=== PATIENT | female | born 1955 | race African-American/Black ===

== ENCOUNTER 2016-12-19 10:32 | Emergency (ER) | payer OTHER ==
[2016-12-19 10:48] VITALS: BP 158/87; PULSE 75; TEMP 97.9; BMI 31.8
--- NOTE | 2016-12-19 12:17 | PDOC ---
History of Present Illness - General Chief Complaint: Eye Problem Stated Complaint: SWOLLEN EYES Time Seen by Provider: 12/19/16 11:41 History Source: Patient Exam Limitations: No Limitations - History of Present Illness Initial Comments: 12/19/16 12:11 CC red eye x 1 day with discharge; very itchy Timing/Duration: 24 hours Severity: mild Associated Symptoms: denies: chest pain, fever/chills, rash Past History - Past Medical History Allergies/Adverse Reactions: Allergies Allergy/AdvReac Type Severity Reaction Status Date / Time aspirin Allergy Severe Hives Verified 12/19/16 10:44 hydrocodone bitartrate Allergy Rash Verified 12/19/16 10:44 [From Vicodin] Home Medications: Ambulatory Orders Olmesartan/Hydrochlorothiazide [Benicar Hct 20-12.5MG Tab -] mg PO DAILY Acetaminophen [Tylenol .Regular Strength -] 650 mg PO Q4H PRN #0 tablet Alprazolam [Xanax] 0.5 mg PO PRN PRN #0 tablet 07/16/12 Dexlansoprazole [Dexilant -] 60 mg PO DAILY #0 cap.drHeribertomp 07/16/12 Enoxaparin [Lovenox -] 40 mg SQ DAILY #0 disp.syrin 07/16/12 Ketorolac Injection [Toradol Injection -] 30 mg IM Q6H PRN #0 vial 07/16/12 Olmesartan/Hydrochlorothiazide [Benicar Hct 20-12.5 mg Tablet] 1 each PO DAILY # 0 tablet 07/16/12 Sennosides [Senna -] 1 tab PO HS #0 tablet 07/16/12 Albuterol Sulfate Inhaler - [Ventolin HFA Inhaler -] 2 inh PO Q4H PRN #1 inh 06/02 Azithromycin [Zithromax Z-THIERRY (5 DAYS) -] 250 mg PO ASDIR #6 tablet 03/26/14 Cetirizine HCl [Zyrtec] 10 mg PO DAILY #10 capsule 03/26/14 Anemia: No Asthma: No Cancer: Yes (CA UTERUS, PAH 1995, NO CHEMO, RADIATION) Cardiac Disorders: No CVA: No COPD: No CHF: No Dementia: No Diabetes: No GI Disorders: Yes (GERD) Disorders: No HTN: Yes Hypercholesterolemia: No Liver Disease: No Seizures: No Thyroid Disease: No - Surgical History Abdominal Surgery: No Appendectomy: No Cardiac Surgery: No Cholecystectomy: No Lung Surgery: No Neurologic Surgery: No Orthopedic Surgery: Yes (RIGHT ARTHROSCOPY) - Psycho/Social/Smoking Cessation Hx Anxiety: Yes Suicidal Ideation: No Smoking History: Former smoker Have you smoked in the past 12 months: No Information on smoking cessation initiated: No Hx Alcohol Use: No Drug/Substance Use Hx: No Substance Use Type: None Hx Substance Use Treatment: No Review of Systems - Review of Systems Constitutional: No: Chills, Fever, Malaise HEENTM: Yes: Tearing, Nose Congestion. No: Eye Pain, Recent change in vision, Double Vision, Cataracts, Ear Pain, Ocular Prothesis, Difficulty Swallowing Respiratory: Yes: Symptoms reported, Cough Cardiac (ROS): No: Symptoms Reported ABD/GI: No: Symptoms Reported *Physical Exam - Vital Signs Last Vital Signs Temp Pulse Resp BP Pulse Ox 97.9 F 75 17 158/87 97 12/19/16 10:44 12/19/16 10:44 12/19/16 10:44 12/19/16 10:44 12/19/16 10:44 - Physical Exam General Appearance: Yes: Appropriately Dressed. No: Apparent Distress HEENT: positive: Nasal Congestion, Rhinorrhea, Other (eye drainage bilat; right > left). negative: TMs Normal, Pharynx Normal, Muffled/Hoarse voice, TM Bulging , TM Dull Neck: negative: Rigid, Supple, Stridor Respiratory/Chest: positive: Lungs Clear. negative: Chest Tender Cardiovascular: positive: Regular Rhythm, Regular Rate. negative: Murmur Medical Decision Making - Medical Decision Making 12/19/16 12:15 bilateral conjunctivitis *DC/Admit/Observation/Transfer Diagnosis at time of Disposition: Conjunctivitis Qualifiers: Conjunctivitis type: acute Acute conjunctivitis type: bacterial Laterality: bilateral Qualified Code(s): H10.33 - Unspecified acute conjunctivitis, bilateral - Discharge Dispostion Disposition: HOME Condition at time of disposition: Stable Admit: No - Referrals Referrals: Eduardo Myles MD [Primary Care Provider] - Kentrell Lundy MD [Staff Physician] - - Patient Instructions Additional Instructions: please see eye md this week for reevaluation if no better 2 days - Post Discharge Activity Work/School Note: Back to Work
== END 2016-12-19 12:28 | disposition home or self-care (01) ==
LOC: JERFT 10:32
DX: H10.33 Unspecified acute conjunctivitis, bilateral (principal); I10 Essential (primary) hypertension
CPT/HCPCS: 99281-25

== ENCOUNTER 2017-10-06 21:25 | Emergency (ER) | payer OTHER ==
[2017-10-06 21:32] VITALS: BP 150/73; PULSE 85; TEMP 97.9
--- NOTE | 2017-10-06 21:34 | PDOC ---
Rapid Medical Evaluation Chief Complaint: Injury Time Seen by Provider: 10/06/17 21:30 Medical Evaluation: Allergies Allergy/AdvReac Type Severity Reaction Status Date / Time aspirin Allergy Severe Hives Verified 10/06/17 21:29 hydrocodone bitartrate Allergy Rash Verified 10/06/17 21:29 [From Vicodin] 10/06/17 21:30 I have performed a brief in-person evaluation of this patient. The patient presents with a chief complaint of: Left arm pain Pertinent physical exam findings: Decrease ROM to Left arm I have ordered the following: X-ray of left shoulder. The patient will proceed to the ED for further evaluation
[2017-10-06 23:29] LABS: INR 1.08 (0.82-1.09); PROTHROMBIN TIME (PATIENT) 12.2 SEC (9.98-11.88)
[2017-10-06 23:30] LABS: BASOPHIL 0.8 % (0-2.0); EOSINOPHIL 2.6 % (0-4.5); MCH 27.7 pg (25.7-33.7); MCHC 33.8 g/dl (32.0-36.0); NEUTROPHILS 57.7 % (42.8-82.8); PLATELET COUNT 323 K/MM3 (134-434); RDW 14.2 % (11.6-15.6); WHITE BLOOD COUNT 7.1 K/mm3 (4.0-10.0)
[2017-10-06 23:47] LABS: ALBUMIN 4.1 g/dl (3.4-5.0); ANION GAP 11 (8-16); BILIRUBIN,TOTAL 0.4 mg/dL (0.2-1.0); CALCIUM 9.4 mg/dL (8.5-10.1); CO2 25 mmol/L (21-32); CREATININE 0.6 mg/dL (0.55-1.02); GLUCOSE,RANDOM 101 mg/dL (74-106); MAGNESIUM 2.1 mg/dL (1.8-2.4); SGOT/AST 13 U/L (15-37); SGPT/ALT 21 U/L (12-78); TOT PROT 7.8 g/dl (6.4-8.2)
[2017-10-06 23:50] LABS: ALK PHOS 114 U/L (45-117); CPK 115 IU/L (26-192); TROPONIN I < 0.02 ng/ml (0.00-0.05)
[2017-10-07] MEDS ORDERED: morphine CARPU-JECT 2 MG/1 ML DISP.SYRIN IVPUSH ONE (00:33)
--- NOTE | 2017-10-07 00:36 | PDOC ---
History of Present Illness - General History Source: Patient Exam Limitations: No Limitations - History of Present Illness Initial Comments: 10/07/17 04:14 The patient is a 61-year-old female with a significant past medical history of HTN, uterine CA, and s/p right arthroscopy, and presents to the emergency department with left shoulder pain s/p injury 2 days ago. Her shoulder pain started after pulling her air conditioners out. She states the pain radiates to her upper arm, neck, and left anterior chest region. She reports that she went to [facility] for an MRI and states they told her there was a cyst in the shoulder. However, she states her pain becoming worse. The patient denies shortness of breath, headache and dizziness. The patient denies fever, chills, nausea, vomit, diarrhea and constipation. The patient denies dysuria, frequency, urgency and hematuria. Allergies: aspirin, hydrocodone bitartrate Past Surgical History: right arthroscopy Social History: No toxic habits reported PCP: Dr. Eduardo Myles <Meagan Del Rio - Last Filed: 10/07/17 04:14> <Sunshine Edmond - Last Filed: 10/08/17 01:12> - General Chief Complaint: Injury Stated Complaint: PAIN Time Seen by Provider: 10/06/17 21:54 Past History <Meagan Del Rio - Last Filed: 10/07/17 04:14> - Past Medical History Anemia: No Asthma: No Cancer: Yes (CA UTERUS, PAH 1995, NO CHEMO, RADIATION) Cardiac Disorders: No CVA: No COPD: No CHF: No Dementia: No Diabetes: No GI Disorders: Yes (GERD) Disorders: No HTN: Yes Hypercholesterolemia: No Liver Disease: No Seizures: No Thyroid Disease: No - Surgical History Abdominal Surgery: No Appendectomy: No Cardiac Surgery: No Cholecystectomy: No Lung Surgery: No Neurologic Surgery: No Orthopedic Surgery: Yes (RIGHT ARTHROSCOPY) - Suicide/Smoking/Psychosocial Hx Smoking History: Never smoked Have you smoked in the past 12 months: No Information on smoking cessation initiated: No Hx Alcohol Use: No Drug/Substance Use Hx: No Substance Use Type: None Hx Substance Use Treatment: No <Sunshine Edmond - Last Filed: 10/08/17 01:12> - Past Medical History Allergies/Adverse Reactions: Allergies Allergy/AdvReac Type Severity Reaction Status Date / Time aspirin Allergy Severe Hives Verified 10/06/17 21:29 hydrocodone bitartrate Allergy Rash Verified 10/06/17 21:29 [From Vicodin] Home Medications: Ambulatory Orders Dexlansoprazole [Dexilant] 60 mg PO DAILY 10/07/17 Methocarbamol [Robaxin -] 500 mg PO TID #30 tablet 10/07/17 Olmesartan/Hydrochlorothiazide [Olmesartan-Hctz 40-12.5 mg Tab] 12.5 mg PO DAILY 10/07/17 Tramadol HCl 50 mg PO PRN PRN 10/07/17 Review of Systems - Review of Systems Able to Perform ROS?: Yes Comments:: 10/07/17 04:14 GENERAL/CONSTITUTIONAL: No fever or chills. No weakness. HEAD, EYES, EARS, NOSE AND THROAT: No change in vision. No ear pain or discharge. No sore throat. CARDIOVASCULAR: No chest pain or shortness of breath. RESPIRATORY: No cough, wheezing, or hemoptysis. GASTROINTESTINAL: No nausea, vomiting, diarrhea or constipation. GENITOURINARY: No dysuria, frequency, or change in urination. MUSCULOSKELETAL: (+) Left shoulder pain. No joint or muscle swelling. No back pain. SKIN: No rash NEUROLOGIC: No headache, vertigo, loss of consciousness, or change in strength/ sensation. ENDOCRINE: No increased thirst. No abnormal weight change. HEMATOLOGIC/LYMPHATIC: No anemia, easy bleeding, or history of blood clots. ALLERGIC/IMMUNOLOGIC: No hives or skin allergy. <Vanesa Del Rioa - Last Filed: 10/07/17 04:14> *Physical Exam - Vital Signs Last Vital Signs Temp Pulse Resp BP Pulse Ox 97.9 F 85 18 150/73 97 10/06/17 21:30 10/06/17 21:30 10/06/17 21:30 10/06/17 21:30 10/06/17 21:30 - Physical Exam Comments: 10/07/17 04:14 GENERAL: Awake, alert, and fully oriented, in no acute distress HEAD: No signs of trauma EYES: PERRLA, EOMI, sclera anicteric, conjunctiva clear ENT: Auricles normal inspection, hearing grossly normal, nares patent, oropharynx clear without exudates. Moist mucosa NECK: Normal ROM, supple, no lymphadenopathy, JVD, or masses LUNGS: Breath sounds equal, clear to auscultation bilaterally. No wheezes, and no crackles HEART: Regular rate and rhythm, normal S1 and S2, no murmurs, rubs or gallops ABDOMEN: Soft, nontender, normoactive bowel sounds. No guarding, no rebound. No masses EXTREMITIES: (+) Left shoulder muscle spasm, no edema. No clubbing or cyanosis. No cords, erythema, or calf tenderness. NEUROLOGICAL: Cranial nerves II through XII grossly intact. Normal speech, normal gait SKIN: Warm, Dry, normal turgor, no rashes or lesions noted. <Meagan Del Rio - Last Filed: 10/07/17 04:14> - Vital Signs Last Vital Signs Temp Pulse Resp BP Pulse Ox 97.9 F 85 18 150/73 97 10/06/17 21:30 10/06/17 21:30 10/06/17 21:30 10/06/17 21:30 10/06/17 21:30 <Sunshine Edmond - Last Filed: 10/08/17 01:12> ED Treatment Course - LABORATORY CBC & Chemistry Diagram: 10/06/17 23:07 10/06/17 23:07 - ADDITIONAL ORDERS Additional order review: Laboratory Results 10/06/17 10/06/17 23:07 23:07 PT with INR 12.20 H INR 1.08 Sodium 139 Potassium 3.4 L Chloride 103 Carbon Dioxide 25 Anion Gap 11 BUN 8 Creatinine 0.6 Creat Clearance w eGFR > 60 Random Glucose 101 Calcium 9.4 Magnesium 2.1 Total Bilirubin 0.4 D AST 13 L D ALT 21 D Alkaline Phosphatase 114 D Creatine Kinase 115 Troponin I < 0.02 Total Protein 7.8 D Albumin 4.1 D 10/06/17 23:07 RBC 4.93 D MCV 82.0 MCHC 33.8 RDW 14.2 MPV 9.0 Neutrophils % 57.7 Lymphocytes % 32.9 D Monocytes % 6.0 Eosinophils % 2.6 Basophils % 0.8 - Medications Given in the ED: ED Medications Discontinued Medications Generic Name Dose Route Start Last Admin Trade Name Freq PRN Reason Stop Dose Admin Acetaminophen 1,000 mg 10/07/17 03:10 10/07/17 03:21 Ofirmev Injection - IVPB 10/07/17 03:11 1,000 mg ONCE ONE Administration Methocarbamol 500 mg 10/07/17 03:10 10/07/17 03:21 Robaxin - PO 10/07/17 03:11 500 mg ONCE ONE Administration Morphine Sulfate 2 mg 10/07/17 00:33 10/07/17 00:46 Morphine Injection - IVPUSH 10/07/17 00:34 2 mg ONCE ONE Administration <Meagan Del Rio - Last Filed: 10/07/17 04:14> - LABORATORY CBC & Chemistry Diagram: 10/06/17 23:07 10/06/17 23:07 - ADDITIONAL ORDERS Additional order review: Laboratory Results 10/06/17 10/06/17 23:07 23:07 PT with INR 12.20 H INR 1.08 Sodium 139 Potassium 3.4 L Chloride 103 Carbon Dioxide 25 Anion Gap 11 BUN 8 Creatinine 0.6 Creat Clearance w eGFR > 60 Random Glucose 101 Calcium 9.4 Magnesium 2.1 Total Bilirubin 0.4 D AST 13 L D ALT 21 D Alkaline Phosphatase 114 D Creatine Kinase 115 Troponin I < 0.02 Total Protein 7.8 D Albumin 4.1 D 10/06/17 23:07 RBC 4.93 D MCV 82.0 MCHC 33.8 RDW 14.2 MPV 9.0 Neutrophils % 57.7 Lymphocytes % 32.9 D Monocytes % 6.0 Eosinophils % 2.6 Basophils % 0.8 <Sunshine Edmond - Last Filed: 10/08/17 01:12> Medical Decision Making - Medical Decision Making 10/08/17 01:10 61 yo female with left shoulder pain. Some radiation to chest. Labs normal. Exam pt has muscle spasm and sprain. She was pulling AC units out of the wall of her home and carrying them about. Pt likely injured muscles. EKG NSR. <Sunshine Edmond - Last Filed: 10/08/17 01:12> *DC/Admit/Observation/Transfer - Attestations Scribe Attestion: 10/07/17 04:15 Documentation prepared by Meagan Del Rio, acting as medical officer for Sunshine Edmond MD/DO. <Meagan Del Rio - Last Filed: 10/07/17 04:14> - Discharge Dispostion Admit: No <Sunshine Edmond - Last Filed: 10/08/17 01:12> Diagnosis at time of Disposition: Muscle spasm - Discharge Dispostion Disposition: HOME Condition at time of disposition: Stable - Prescriptions Prescriptions: Methocarbamol [Robaxin -] 500 mg PO TID #30 tablet - Referrals Referrals: Eduardo Myles MD [Primary Care Provider] - - Patient Instructions Printed Discharge Instructions: DI for Shoulder Sprain - Post Discharge Activity
[2017-10-07] MEDS ORDERED: morphine SULFATE 4 MG/ML VIAL ONE (00:37)
[2017-10-07] MEDS ORDERED: METHOCARBAMOL 500 MG TABLET PO ONE (03:10)
[2017-10-07] MEDS ORDERED: ACETAMINOPHEN 1000 MG/100 ML VIAL (NON FORMULARY) IVPB ONE (03:10)
[2017-10-07] MEDS ORDERED: METHOCARBAMOL 500 MG TABLET ONE (03:15)
[2017-10-07] MEDS ORDERED: ACETAMINOPHEN INJECTION 100 ML IVPB ONE (03:16)
--- NOTE | 2017-10-09 11:38 | EKG ---
Test Reason : Blood Pressure : / mmHG Vent. Rate : 066 BPM Atrial Rate : 066 BPM P-R Int : 160 ms QRS Dur : 084 ms QT Int : 438 ms P-R-T Axes : 038 030 063 degrees QTc Int : 459 ms NORMAL SINUS RHYTHM NORMAL ECG WHEN COMPARED WITH ECG OF 13-JUL-2008 12:56, NO SIGNIFICANT CHANGE WAS FOUND Confirmed by PRABHAKAR CALVO MD ([id number]) on 10/09/2017 11:37:57 AM Referred By: Confirmed By:PRABHAKAR CALVO MD
== END 2017-10-07 04:10 | disposition home or self-care (01) ==
LOC: JERFT 21:25 → JER 21:25
PROC: 3E033NZ Introduction of Analgesics, Hypnotics, Sedatives into Peripheral Vein, Percutaneous Approach (ICD-10-PCS; principal; 2017-10-06)
PROC: 3E033NZ Introduction of Analgesics, Hypnotics, Sedatives into Peripheral Vein, Percutaneous Approach (ICD-10-PCS; 2017-10-06)
DX: M62.838 Other muscle spasm (principal)
CPT/HCPCS: 36415; 71020-TC; 73030-TC-LT; 80053; 82550; 83735; 84484; 85025; 85610; 93005; 93010; 96374; 96375; 99282-25

== ENCOUNTER 2018-11-06 13:08 | Emergency (ER) | payer OTHER ==
[2018-11-06 13:20] VITALS: TEMP 97.4; BMI 30.4
--- NOTE | 2018-11-06 13:58 | PDOC ---
History of Present Illness - General Chief Complaint: Blood Pressure Problem Stated Complaint: SENT BY PCP HIGH BLOOD PRESSURE Time Seen by Provider: 11/06/18 13:46 History Source: Patient Exam Limitations: No Limitations - History of Present Illness Initial Comments: 11/06/18 13:53 Patient is a 62F with history of HTN, HLD, GERD and knee replacement here today complaining of high blood pressure reading. Patient states that her blood pressure was 175/110 at home, and when she called to set an appointment for this , she was told to go to the ED. She denies headache, vision changes, chest pain , shortness of breath and abdominal pain. Patient states that she feels fine, she's just had high blood pressure readings. Currently takes olmesartan and HCTZ. Denies fevers, chills, nausea, vomiting. Past History - Past Medical History Allergies/Adverse Reactions: Allergies Allergy/AdvReac Type Severity Reaction Status Date / Time aspirin Allergy Severe Hives Verified 11/06/18 13:16 hydrocodone bitartrate Allergy Rash Verified 11/06/18 13:16 [From Vicodin] Home Medications: Ambulatory Orders Dexlansoprazole [Dexilant] 60 mg PO DAILY 10/07/17 Methocarbamol [Robaxin -] 500 mg PO TID #30 tablet 10/07/17 Colestipol HCl 2 gm PO BID 05/29/18 Olmesartan Medoxomil 20 mg PO DAILY 05/29/18 Blood Pressure Test Kit-Large [Blood Pressure Monitor] 1 each PRN #1 kit 10/07 Hydrochlorothiazide [Hctz -] 12.5 mg PO DAILY #14 cap 05/30/18 Miscellaneous Medical Supply [Outpatient Order] 1 each ASDIR #1 misc Anemia: No Asthma: No Cancer: Yes (Uterine CA) Cardiac Disorders: No CVA: No COPD: No CHF: No Dementia: No Diabetes: No GI Disorders: Yes (GERD) Disorders: No HTN: Yes Hypercholesterolemia: Yes Liver Disease: No Seizures: No Thyroid Disease: No - Surgical History Abdominal Surgery: No Appendectomy: No Cardiac Surgery: No Cholecystectomy: No Lung Surgery: No Neurologic Surgery: No Orthopedic Surgery: Yes (RIGHT knee ARTHROSCOPY x2) - Immunization History Immunization Up to Date: Yes - Suicide/Smoking/Psychosocial Hx Smoking History: Never smoked Have you smoked in the past 12 months: No If you are a former smoker, when did you quit?: 2006 Hx Alcohol Use: No Drug/Substance Use Hx: No Substance Use Type: None Hx Substance Use Treatment: No Review of Systems - Review of Systems Comments:: 11/06/18 13:56 GENERAL/CONSTITUTIONAL: No fever or chills. No weakness. HEAD, EYES, EARS, NOSE AND THROAT: No change in vision. No sore throat. CARDIOVASCULAR: No chest pain or shortness of breath RESPIRATORY: No cough, wheezing, or hemoptysis. GASTROINTESTINAL: No nausea, vomiting, diarrhea or constipation. GENITOURINARY: No dysuria, frequency, or change in urination. MUSCULOSKELETAL: +b/l knee pain, chronic. No neck or back pain. SKIN: No rash NEUROLOGIC: No headache, vertigo, loss of consciousness, or change in strength/ sensation. HEMATOLOGIC/LYMPHATIC: No anemia, easy bleeding, or history of blood clots. *Physical Exam - Vital Signs Last Vital Signs Temp Pulse Resp BP Pulse Ox 97.4 F L 71 18 176/88 H 99 11/06/18 13:16 11/06/18 13:16 11/06/18 13:16 11/06/18 13:16 11/06/18 13:16 - Physical Exam Comments: 11/06/18 13:58 GENERAL: Awake, alert, and fully oriented, in no acute distress HEAD: No signs of trauma, normocephalic, atraumatic EYES: PERRLA, EOMI, sclera anicteric, conjunctiva clear NECK: Normal ROM, supple, no lymphadenopathy, JVD, or masses LUNGS: No distress, speaks full sentences, clear to auscultation bilaterally HEART: Regular rate and rhythm, normal S1 and S2, no murmurs, rubs or gallops, peripheral pulses normal and equal bilaterally. ABDOMEN: Soft, nontender, normoactive bowel sounds. No guarding, no rebound. No masses EXTREMITIES: Normal inspection, Normal range of motion, no edema. No clubbing or cyanosis. NEUROLOGICAL: Cranial nerves II through XII grossly intact. Normal speech, normal gait, no focal sensorimotor deficits SKIN: Warm, Dry, normal turgor, no rashes or lesions noted. Moderate Sedation - Procedure Monitoring Vital Signs: Procedure Monitoring Vital Signs Temperature 97.4 F L 11/06/18 13:16 Pulse Rate 71 11/06/18 13:16 Respiratory Rate 18 11/06/18 13:16 Blood Pressure 176/88 H 11/06/18 13:16 O2 Sat by Pulse Oximetry (%) 99 11/06/18 13:16 Medical Decision Making - Medical Decision Making 11/06/18 14:00 Patient is a 62F with history of htn, hld, gerd here today complaining of hypertension at home. Assymptomatic. BP here stable. Per ACEP guidelines, will not work up patient or attempt to start new medication. Dr Fuentes called at . Patient asking to go home, states that she will follow up in week. Dr Fuentes agrees with plan. Discharged home with return precautions. *DC/Admit/Observation/Transfer Diagnosis at time of Disposition: HTN (hypertension) - Discharge Dispostion Disposition: HOME Condition at time of disposition: Good Decision to Admit order: No - Referrals Referrals: Nathalie uFentes DO [Primary Care Provider] - - Patient Instructions Printed Discharge Instructions: DI for High Blood Pressure, How to Monitor Your Blood Pressure at Home Additional Instructions: Please follow up with your primary care doctor in the next week. Please return to the ED immediately if you have chest pain, shortness of breath or severe headache. - Post Discharge Activity
--- NOTE | 2018-11-06 13:59 | PDOC ---
Attending Attestation - Resident Resident Name: Alex Vuong - ED Attending Attestation I have performed the following: I have examined & evaluated the patient, The case was reviewed & discussed with the resident, I agree w/resident's findings & plan, Exceptions are as noted - Physicial Exam PE: 11/06/18 14:09 GENERAL: The patient is awake, alert, and fully oriented, Nontoxic - in no acute distress. HEAD: Normocephalic, atraumatic. EYES: extraocular movements intact, sclera anicteric, conjunctiva clear. ENT: Normal voice, Moist mucous membranes. NECK: Normal range of motion, supple LUNGS: Breath sounds equal, clear to auscultation bilaterally. No wheezes, no rhonchi, no rales. HEART: Regular rate and rhythm, normal S1 and S2 without murmur, rub or gallop. ABDOMEN: Soft, nontender, No guarding, no rebound. No CVA tenderness EXTREMITIES: Normal range of motion, NEUROLOGICAL: No facial assymetry, Normal speech, PSYCH: Normal mood, normal affect. SKIN: Warm, Dry, normal turgor, - Medical Decision Making 11/06/18 13:59 62y F hx of htn, hl, gerd presents for elevated bp. sent by PMD for hypertension. pt had a mild headache earlier today and lasted for ~1 hr resolved with tylenol. currently asymtomatic. denies any cp, sob, ligheadedness, vision changes, focal numbness/tingling/ weakness pt notes she is complaint with her bp meds. repeat bp at 138/88 will dc with pmd fu return precautions were discused A portion of this note was documented by scribe services under my direction. I have reviewed the details of the note, within reason, and agree with the documentation with the following case summary and management plan written by me
[2018-11-06 14:13] VITALS: BP 138/85; PULSE 66
== END 2018-11-06 14:13 | disposition home or self-care (01) ==
LOC: JER 13:08
DX: I10 Essential (primary) hypertension (principal); E78.5 Hyperlipidemia, unspecified; K21.9 Gastro-esophageal reflux disease without esophagitis
CPT/HCPCS: 99282-25

== ENCOUNTER 2019-02-12 22:07 | Emergency (ER) | payer OTHER ==
[2019-02-12 22:59] VITALS: BP 138/76; PULSE 77; TEMP 98.1; BMI 31.6
== END 2019-02-12 23:06 | disposition left against medical advice (07) ==
LOC: JER 22:07
DX: Z53.21 Procedure and treatment not carried out due to patient leaving prior to being seen by health care provider (principal)
CPT/HCPCS: 99281-25

== ENCOUNTER 2019-10-02 06:48 | Emergency (ER) | payer OTHER ==
[2019-10-02 07:19] VITALS: BP 133/83; PULSE 64; TEMP 98.3; BMI 30.2
[2019-10-02] MEDS ORDERED: DEXAMETHASONE LIQUID 0.5 MG/5 ML PO ONE (07:34)
[2019-10-02] MEDS ORDERED: ACETAMINOPHEN 325 MG TABLET (FP) PO ONE (07:34)
[2019-10-02] MEDS ORDERED: ACETAMINOPHEN 325 MG TABLET (FP) ONE (07:39)
[2019-10-02] MEDS ORDERED: DEXAMETHASONE SOD PHOSPHATE 10 MG/1 ML VIAL ONE (07:40)
--- NOTE | 2019-10-02 07:45 | PDOC ---
History of Present Illness - General Chief Complaint: Ear Problem Stated Complaint: BILATERAL EAR AND THROAT PAIN Time Seen by Provider: 10/02/19 07:21 History Source: Patient Exam Limitations: No Limitations Past History - Travel Traveled outside of the country in the last 30 days: No Close contact w/someone who was outside of country & ill: No - Past Medical History Allergies/Adverse Reactions: Allergies Allergy/AdvReac Type Severity Reaction Status Date / Time aspirin Allergy Severe Hives Verified 10/02/19 07:12 hydrocodone bitartrate Allergy Rash Verified 10/02/19 07:12 [From Vicodin] Home Medications: Ambulatory Orders Dexlansoprazole [Dexilant] 60 mg PO DAILY 10/07/17 Colestipol HCl 2 gm PO BID 05/29/18 Olmesartan Medoxomil 40 mg PO DAILY 05/29/18 Hydrochlorothiazide [Hctz -] 12.5 mg PO DAILY #14 cap 05/30/18 Azithromycin [Zithromax 250mg Tablets -] 250 mg PO UTDICT #6 tab 10/02/19 Chlorpheniramine/Dextromethorp [Coricidin Hbp Cough & Cold Tab] 1 each PO Q8H # 30 tablet 10/02/19 Fluticasone Prop 0.05% Nasal [Flonase -] 1 - 2 spray NS DAILY #1 spray.pump Anemia: No Asthma: No Cancer: Yes (Uterine CA) Cardiac Disorders: No CVA: No COPD: No CHF: No Dementia: No Diabetes: No GI Disorders: Yes (GERD) Disorders: No HTN: Yes Hypercholesterolemia: Yes Liver Disease: No Seizures: No Thyroid Disease: No - Surgical History Abdominal Surgery: No Appendectomy: No Cardiac Surgery: No Cholecystectomy: No Lung Surgery: No Neurologic Surgery: No Orthopedic Surgery: Yes (RIGHT knee ARTHROSCOPY x2) - Immunization History Immunization Up to Date: Yes - Psycho Social/Smoking Cessation Hx Smoking History: Never smoked Have you smoked in the past 12 months: No If you are a former smoker, when did you quit?: 2005 Information on smoking cessation initiated: No Hx Alcohol Use: No Drug/Substance Use Hx: No Substance Use Type: None Hx Substance Use Treatment: No Review of Systems - Review of Systems Able to Perform ROS?: Yes Comments:: 10/02/19 07:47 CONSTITUTIONAL: Present: fever Absent: chills, diaphoresis, generalized weakness, malaise, loss of appetite HEENT: Present: rhinorrhea, ear pain, sore throat, nasal congestion Absent:throat swelling, difficulty swallowing, mouth swelling, eye pain, visual Changes CARDIOVASCULAR: Absent: chest pain, loss of consciousness, palpitations, irregular heart rate, peripheral edema RESPIRATORY: Present: productive cough Absent: cough, shortness of breath, dyspnea with exertion, orthopnea, wheezing, stridor, hemoptysis GASTROINTESTINAL: Absent: abdominal pain, abdominal distension, nausea, vomiting, diarrhea, constipation, melena, hematochezia GENITOURINARY: Absent: dysuria, frequency, urgency, hesitancy, hematuria, flank pain, genital pain MUSCULOSKELETAL: Absent: myalgia, arthralgia, joint swelling SKIN: Absent: rash, itching, pallor NEUROLOGIC: Absent: headache, focal weakness or paresthesias, dizziness, unsteady gait, seizure, mental status changes, bladder or bowel incontinence PSYCHIATRIC: Absent: anxiety, depression, suicidal or homicidal ideation, hallucinations. Is the patient limited Danish proficient: No *Physical Exam - Vital Signs Last Vital Signs Temp Pulse Resp BP Pulse Ox 98.3 F 64 18 133/83 100 10/02/19 07:10 10/02/19 07:10 10/02/19 07:10 10/02/19 07:10 10/02/19 07:10 - Physical Exam Comments: 10/02/19 07:48 GENERAL: The patient is awake, alert, and fully oriented, in no acute distress. HEAD: Normal with no signs of trauma. EYES: Pupils equal, round and reactive to light, extraocular movements intact, sclera anicteric, conjunctiva clear. HEENT: (+) nasal congestion and rhinorrhea. No sinus Tenderness. Mucous membranes are moist. (+) tonsillar erythema. No exudate or edema. Uvula is midline.TM's are dull b/l. No TM bulging, or erythema. NECK: Neck is supple. (+) cervical adenopathy. No meningismus. No stridor. LUNGS: CTAB, (-) wheezing/rales/rhonchi. Good aeration to the bases. EXTREMITIES: Normal range of motion, no edema. NEUROLOGICAL: Normal speech, normal gait. PSYCH: Normal mood, normal affect. SKIN: Warm, Dry, normal turgor, no rashes or lesions noted. Medical Decision Making - Medical Decision Making 10/02/19 07:48 The patient is a 63-year-old female past medical history of hypertension, GERD, HLD, presents to the ER with 7 days of sore throat, bilateral earache and congestion. She states that she had a fever on Monday, but has not had one since. She also notes that she has developed a productive cough with yellow sputum. She states that she has been trying home remedies such as salt water gargles with little relief of her symptoms. She took 1 dose of an antibiotic last night that was left over from her daughter's previous treatment. Denies chills, chest pain, difficulty breathing, nausea, vomiting and diarrhea. A/P: URI/pharyngitis On exam patient with erythema to the posterior pharynx, positive cervical adenopathy. Lungs CTAB TMs are dull bilaterally without evidence of acute otitis media Rapid strep obtained; however, likely viral Decadron and Tylenol given for her symptoms Reevaluate 10/02/19 09:25 Rapid strep negative Given length of symptoms; will treat with a z-pack Last EKG reviewed (2018): Normal QTc Recommend other supportive therpay and PCP follow up DC home I discussed the physical exam findings, ancillary test results and final diagnoses with the patient. I answered all of the patient's questions. The patient was satisfied with the care received and felt comfortable with the discharge plan and treatment plan. The Patient agrees to follow up with the primary care physician/specialist within 24-72 hours. Return precautions were given. Discharge - Discharge Information Problems reviewed: Yes Clinical Impression/Diagnosis: URI (upper respiratory infection) Qualifiers: URI type: unspecified URI Qualified Code(s): J06.9 - Acute upper respiratory infection, unspecified Condition: Stable Disposition: HOME - Admission No - Follow up/Referral Referrals: Nathalie Fuentes DO [Primary Care Provider] - - Patient Discharge Instructions Patient Printed Discharge Instructions: DI for Viral Upper Respiratory Infection -- Adult Additional Instructions: You have an upper respiratory infection, or the common cold. Your strep testing was negative today. Take the Z-pack and cough syrup as directed. Drink plenty of fluids. Cough drops and warm tea may help your symptoms as well. Please follow up with her primary care doctor this week. Return to the emergency department if you have difficulty breathing, shortness of breath, worsening pain, nausea, vomiting or if you have any changes in your symptoms. - Post Discharge Activity
== END 2019-10-02 09:00 | disposition home or self-care (01) ==
LOC: JER 06:48
DX: J06.9 Acute upper respiratory infection, unspecified (principal); I10 Essential (primary) hypertension; K21.9 Gastro-esophageal reflux disease without esophagitis; E78.5 Hyperlipidemia, unspecified; Z88.8 Allergy status to other drugs, medicaments and biological substances; Z88.6 Allergy status to analgesic agent
CPT/HCPCS: 87070; 87880; 99282-25